=== PATIENT | male | born 2000 | race Caucasian/White ===

== ENCOUNTER 2023-04-26 09:56 | Emergency (ER) | payer MEDICAID, SELFPAY ==
[2023-04-26 09:59] VITALS: BP 137/87; PULSE 72; RESP 14; TEMP 36.8; O2SAT 98
[2023-04-26] MEDS: Acetaminophen 500 MG TAB PO (10:26)
[2023-04-26] MEDS: Amoxicillin 875/Clav. 125 TAB PO (10:26)
[2023-04-26] MEDS: Ibuprofen 600 MG TAB PO (10:26)
--- NOTE | 2023-04-26 10:39 | W.ED.GENAD ---
Discharge Plan Disposition Patient Disposition: Home Condition: Stable Discharge Details Clinical Impression: Infected dental caries Primary Care Provider: None,None ED Provider: Ken Collado Home Meds and New Rx's Prescriptions: New amoxicillin-pot clavulanate 875-125 mg tablet 1 tab PO Q12H 7 Days Qty: 14 0RF Discharge Instructions Instructions: Dental Abscess (ED) Additional Instructions: At this time it appears that your dental decay has led to a infection of your teeth. You have been placed on antibiotics and you will need to take the full course of antibiotics as prescribed and do not save or stop the antibiotic until completed. Please follow-up with a dental provider for definitive care of your dental complaint as the level of decay is contributing to the infection. If you develop any new or significant worsening symptoms feel free to return the emergency department for reassessment. Referrals: [facility] [Provider Group] (Please call the office for arrangement of definitive care) Discharge Data Discharge Date/Time-TO BE ENTERED AT DEPARTURE: 04/26/23 10:54 Medical Decision Making exam consistent with dental infection without drainable abscess. no signs of deep neck space infection ( Retropharyngeal abscess, Ad's angina, Parapharyngeal space infection, Peritonsillar Abscess (CONTRACT CONSULTANT)) or Epiglottitis, No signs of trigeminal neuralgia. Pt non toxic and stable. they should encourage to continue over the counter pain therapy and follow up with dental provider as soon as possible for definitive care of Dental complaint. Due to very poor dentition will place patient on antibiotic. After discussion of diagnosis and plan of care patient has no further needs, questions, or concerns and states clear understanding to return to the emergency department for any worsening symptoms. This documentation was generated using X-1ation system, please disregard any oddities of phrase or misspellings. HPI General Mode of arrival: ambulatory. Date/Time Provider Initiated Documentation: 04/26/23 10:03. Limitations to Documentation: no limitations. Information obtained by: patient. History of Present Illness 22 year old M presents to the emergency department with the chief complaint of dental, described as moderate, with intensity rated at 10. Quality is described as aching, and is localized to the face. Patient started experiencing this day(s) (1) and it has been constant. No relieving factors improve symptom(s), No exacerbating factors reported . Patient notes no other symptoms.. Patient did receive the following treatments prior to arrival, NSAID Related Data Home Medications Medication Instructions Recorded Confirmed amoxicillin 875 mg-potassium 1 tab PO Q12H 7 days #14 tabs 04/26/23 clavulanate 125 mg tablet Previous Rx's Medication Instructions Recorded amoxicillin 875 mg-potassium 1 tab PO Q12H 7 days #14 tabs 04/26/23 clavulanate 125 mg tablet Allergies Allergy/AdvReac Type Severity Reaction Status Date / Time No Known Allergies Allergy Unverified 04/26/23 10:05 General Stated Complaint: DentalOral DAVID: 4 Review of Systems Constitutional Constitutional: Denies chills and Denies fever(s) ENT Ears, Nose, Mouth, and Throat: Reports as per HPI, Denies change in voice, Reports dental pain, Denies dysphagia, Denies throat swelling and Denies tongue swelling Cardiovascular Cardiovascular: Denies chest pain and Denies dyspnea Respiratory Respiratory: Denies dyspnea, Denies stridor and Denies wheezing Gastrointestinal Gastrointestinal: Denies abdominal pain, Denies dysphagia, Denies nausea and Denies vomiting Integumentary/Breasts Skin/Breast: Denies rash Allergic/Immunologic Allergic/Immunologic: Denies throat swelling, Denies tongue swelling and Denies wheezing PFSH All Active Problems Infected dental caries (Acute) Social History Smoking/Tobacco Use Status: Current every day Tobacco Type: cigarettes Tobacco: How many years used: 4 Smoking risk assessment performed?: Yes Alcohol Intake: current Alcohol Intake frequency: holidays/special occasions only Alcohol type: beer and hard liquor Substance use type: does not use Do you feel safe at home: Yes Do you feel safe in your relationship?: Yes Exam Const General: cooperative Orientation: alert, awake and oriented x3 Limitations: mental status not altered [facility] Head: normal to inspection, normocephalic and atraumatic Ears: hearing grossly normal bilaterally, normal mastoids bilaterally and no periauricular adenopathy General nose exam: external nose normal Mouth: oropharynx normal, no drooling, no muffled voice, normal tongue and no trismus Teeth and gingiva: abnormal tooth or associated gingiva (8&9) upper central incisor tender, with associated gingival edema, enamel fractured and dentin fractured, caries, gingiva abnormal hypertrophic and edematous and poor dentition Throat: posterior oropharynx normal, tonsils normal and uvula midline Eyes General: appearance normal, both eyes and all related structures Pupils: PERRL Neck Neck: normal visual inspection, full ROM, no lymphadenopathy, no meningeal signs, trachea midline, supple, no anterior neck swelling and no midline deformity Resp Effort & Inspection: normal respiratory effort and able to speak in complete sentences Course Vital Signs Vital signs: Vital Signs Temperature 36.8 C 04/26/23 09:59 Pulse 72 04/26/23 09:59 Respiratory Rate 14 04/26/23 09:59 Blood Pressure 137/87 04/26/23 09:59 Pulse Oximetry 98 04/26/23 09:59 Temperature 36.8 C 04/26/23 09:59 Temperature Source Skin 04/26/23 09:59 Pulse 72 04/26/23 09:59 Respiratory Rate 14 04/26/23 09:59 Respiratory Effort Normal 04/26/23 10:19 Blood Pressure 137/87 04/26/23 09:59 Blood Pressure Position Sitting 04/26/23 09:59 Pulse Oximetry 98 04/26/23 09:59 Oxygen Delivery Method Room Air 04/26/23 09:59 Oxygen Flow Rate 0 04/26/23 09:59 Pain Level 10 04/26/23 09:59
== END 2023-04-26 10:54 | disposition home or self-care (01) ==
PROVIDERS: Emergency Provider Nurse Practitioner Family
DX: K08.89 Other specified disorders of teeth and supporting structures (principal)
CPT/HCPCS: 99283; 99284

== ENCOUNTER 2023-07-09 08:36 | Emergency (ER) | payer MEDICAID, SELFPAY ==
[2023-07-09 08:42] VITALS: BP 133/74; PULSE 64; RESP 16; TEMP 37.6; O2SAT 98
--- NOTE | 2023-07-09 09:10 | ED.GENADUL_ITS ---
Discharge Plan Disposition Patient Disposition: Home Condition: Stable Discharge Details Clinical Impression: Chronic dental infection Primary Care Provider: Aminata,Local ED Provider: Josefina Ponce Home Meds and New Rx's Prescriptions: New clindamycin HCl 150 mg capsule 450 mg PO TID 7 Days Qty: 63 0RF Discharge Instructions Instructions: Toothache (ED), Gingivostomatitis (ED) Additional Instructions: Please wash out your mouth after eating or drinking anything, brush teeth twice a day. Consider quitting smoking. You do need to follow-up with a dentist. Take the antibiotic with yogurt or probiotic as directed. Please take Tylenol or Ibuprofen with food every 4-6 hours as needed for pain and swelling. Follow up with dentist/primary care provider in 3-5 days. Return to ED sooner if any worsening swelling, trouble opening your mouth, worsening fever, vomiting or feeling sicker or concerns. Increase oral fluids. Stand Alone Forms: Work Release Discharge Data Discharge Date/Time-TO BE ENTERED AT DEPARTURE: 07/09/23 09:29 Medical Decision Making 22-year-old male presents to the ER with a chief complaint of frontal dental pain and lip swelling which started last night. He does have a history of poor dentition, dental caries and eroded teeth which she was seen for here appro ximately month ago. He has not yet gotten into the dentist. He is slightly febrile upon arrival with a temp of 37.6 he reports he did take a gram of Tylenol prior to arrival. He does have gingival swelling to the front upper approximately 5 teeth. No area of fluctuance noted no drainage. No trismus posterior oropharynx within normal limits uvula midline. He denies any anterior cervical lymphadenopathy cough chest pain or any other associated symptoms. He is a smoker. He denies any illicit drugs or alcohol. He has been taking Tylenol with little to no relief. No evidence of abscess, no evidence of Ad's angina, ordered ibuprofen, clindamycin, HurriCaine gel. We will give dental resources. I did discuss home care and dental care verbalizes understanding. This text was generated using Surveying [employer] Mapping (SAM)ation system, please disregard any oddities of phrase or misspellings. HPI General Mode of arrival: ambulatory . Date/Time Provider Initiated Documentation: 07/09/23 08:57 . Limitations to Documentation: no limitations . Information obtained by: patient, RN notes reviewed and old records reviewed . HPI Narrative: 22-year-old male presents to the ER with a chief complaint of frontal dental pain and lip swelling which started last night. He does have a history of poor dentition, dental caries and eroded teeth which she was seen for here approximately month ago. He has not yet gotten into the dentist. He is slightly febrile upon arrival with a temp of 37.6 he reports he did take a gram of Tylenol prior to arrival. He does have gingival swelling to the front upper approximately 5 teeth. No area of fluctuance noted no drainage. No trismus p osterior oropharynx within normal limits uvula midline. He denies any anterior cervical lymphadenopathy cough chest pain or any other associated symptoms. He is a smoker. He denies any illicit drugs or alcohol. Related Data Home Medications Medication Instructions Recorded Confirmed clindamycin HCl 150 mg capsule 450 mg PO TID 7 days #63 caps 07/09/23 Previous Rx's Medication Instructions Recorded clindamycin HCl 150 mg capsule 450 mg PO TID 7 days #63 caps 07/09/23 Allergies Allergy/AdvReac Type Severity Reaction Status Date / Time No Known Allergies Allergy Unverified 07/09/23 08:45 General Stated Complaint: DentalOral DAVID: 4 Review of Systems All systems reviewed & are unremarkable except as noted in HPI and below Constitutional Constitutional: Denies fever(s) and Denies headache(s) ENT Ears, Nose, Mouth, and Throat: Reports as per HPI, Denies change in voice, Reports dental pain, Denies dysphagia, Denies vertigo, Denies dizziness, Denies otalgia, Denies headache(s), Denies hoarseness, Reports lip swelling (Frontal lip, reports was worse REGISTERED DIETITIAN), Reports mouth pain, Denies nasal discharge, Denies neck pain, Denies sinus pain and Denies tongue swelling Cardiovascular Cardiovascular: Denies chest pain and Denies dyspnea Respiratory Respiratory: Denies dyspnea Gastrointestinal Gastrointestinal: Denies dysphagia Musculoskeletal Musculoskeletal: Denies neck pain Neurologic Neurologic: Denies vertigo, Denies dizziness and Denies headache(s) Allergic/Immunologic Allergic/Immunologic: Reports lip swelling (Frontal lip, reports was worse REGISTERED DIETITIAN) and Denies tongue swelling PFSH All Active Problems (Updated 07/09/23 @ 09:16 by Josefina Ponce NP) Chronic dental infection (Acute) Social History Smoking/Tobacco Use Status: Current every day Tobacco Type: cigarettes Tobacco: How many years used: 4 Smoking risk assessment performed?: Yes Alcohol Intake: current Alcohol Intake frequency: holidays/special occasions only Alcohol type: beer and hard liquor Drug use: Never Substance use type: does not use Housing: apartment Do you feel safe at home: Yes Do you feel safe in your relationship?: Yes Exam HENMT Teeth and gingiva: abnormal tooth or associated gingiva (See diagram) upper central incisor tender and with associated gingival edema; well fixed and without associated gingival fluctuance, caries and poor dentition Teeth image: 1. Multiple eroded teeth with surrounding gingival erythema and swelling, does have a white lesion noted to the right upper gum. Mild swelling of the upper lip. No area of fluctuance or abscess no drainage noted. Throat: posterior oropharynx normal Neck Neck: normal visual inspection, full ROM and no lymphadenopathy Resp Effort & Inspection: normal respiratory effort Auscultation: clear to auscultation bilaterally Cardio Rate: regular rate Rhythm: regular rhythm Heart Sounds: S1 normal and S2 normal Course Vital Signs Vital signs: Vital Signs Temperature 37.6 C H 07/09/23 08:42 Pulse 64 07/09/23 08:42 Respiratory Rate 16 07/09/23 08:42 Blood Pressure 133/74 07/09/23 08:42 Pulse Oximetry 98 07/09/23 08:42 Temperature 37.6 C H 07/09/23 08:42 Temperature Source Oral 07/09/23 08:42 Pulse 64 07/09/23 08:42 Respiratory Rate 16 07/09/23 08:42 Respiratory Effort Normal, Non-Labored 07/09/23 08:45 Blood Pressure 133/74 07/09/23 08:42 Blood Pressure Position Sitting 07/09/23 08:42 Pulse Oximetry 98 07/09/23 08:42 Oxygen Delivery Method Room Air 07/09/23 08:42 Oxygen Flow Rate 0 07/09/23 08:42
[2023-07-09] MEDS: Ibuprofen 400 MG TAB PO (09:20)
[2023-07-09] MEDS: Clindamycin 150 MG CAP 450 MG PO (09:21)
[2023-07-09] MEDS: Benzocaine 20% Gel 30 GM JAR MM (09:22)
[2023-07-09] MEDS: Clindamycin 150 MG CAP, 12 CAPS/BTL 450 MG PO (09:28)
== END 2023-07-09 09:29 | disposition home or self-care (01) ==
PROVIDERS: Emergency Provider Registered Nurse Emergency
DX: K04.7 Periapical abscess without sinus (principal)
CPT/HCPCS: 99283; 99284

== ENCOUNTER 2023-09-19 17:00 | Emergency (ER) | payer MEDICAID, SELFPAY ==
[2023-09-19 17:04] VITALS: BP 147/80; PULSE 86; RESP 16; TEMP 37.3; O2SAT 98
--- OUTSIDE RECORDS SUMMARY | 2023-09-19 17:06 | XMS_ITS | CCD ---
Author Name Unknown Address [address] [place] [address] [id number] Organization Unknown Address [address] [place] [address] [id number] Care Team Providers Care Manager Of Security Name Role Phone MANDI GUERRERO Attending Physician [id number] MILAGRO ZHENG Er Physician 6 [phone] DIVINE Sandoval Registered Nurse [phone] Vital Signs Vital Sign Value Unit Date/Time Recent/Initial ? BMI (Body Mass Index) 25.09 kg/m^2 09/13/2023 13: 21 Initial VS Weight Measured 165 lbs 09/13/2023 13:21 Ini tial VS Height 68 in 09/13/2023 13:21 Initial VS BSA (Body Surface Area) 1.89 m^2 09/13/2023 1 3:21 Initial VS BP Systolic 150 mmHg 09/13/2023 13:21 Initial VS BP Diastolic 83 mmHg 09/13/2023 13:21 Initia l VS Respiratory Rate 18 bpm 09/13/2023 13:21 In itial VS Heart Rate 78 bpm 09/13/2023 13:21 Initial VS O2 % BldC Oximetry 100 % 09/13/2023 13:21 Initial VS Body Temperature 36.7 degrees 09/13/2023 13:21 In itial VS Allergies Allergy Code Allergy Type Reaction Status No Known Allergies {Clinical monitoring unavailable} 0 Drug allergy Active Procedures Unknown or Not Available. History of Immunizations Unknown or Not Available. Problems Unknown or Not Available. Results Unknown or Not Available. Active Medications Unknown or Not Available. Medications Administered During Visit Unknown or Not Available. Encounters Encounter Diagnosis Diagnosis Code Start Date Periapical abscess [id number] 09/13/2023 Social History Smoking Status Code Start Date End Date Never smoker [id number] Patient Decision Aids Unknown or Not Available. Discharge Instructions You were admitted to [facility] on 09/13/2023 13:04 with a principal diagnosis of Periapical abscess without sinus You were discharged from [facility] on 09/13/2023 14:17 Should you have any questions prior to discharge, please contact a member of your healthcare team. If you have left the hospital and have any questions, please contact your primary care physician. Chief Complaint and Reason For Visit Chief Complaint Date of Onset MOUTH PAIN AND SWELLING Function Status Unknown or Not Available. Plan of Care Unknown or Not Available. Referral/Transition of Care Unknown or Not Available.
--- NOTE | 2023-09-19 17:30 | ED.GENADUL_ITS ---
Discharge Plan Disposition Patient Disposition: Home Condition: Stable Discharge Details Clinical Impression: Dental infection Primary Care Provider: None,None ED Provider: Lisha Turner Home Meds and New Rx's Prescriptions: New clindamycin HCl [Cleocin HCl] 300 mg capsule 300 mg PO QID Qty: 28 0RF Discharge Instructions Instructions: Dental Abscess (ED) Additional Instructions: Continue ibuprofen and acetaminophen alternating the 2 every 2-3 hours daily as directed (ibuprofen 600 mg 4 times daily with food, acetaminophen 650 mg 4 times daily with food) Continue salt water gargles as instructed Referrals: None,None [Primary Care Provider] - (establish with dentist archie) Medical Decision Making Patient presents after some improvement with treatment with penicillin for dental infection but ongoing pain and almost on prescription without complete resolution. I think at this point it would be prudent to increase antibiotic to clindamycin he should continue using ibuprofen and acetaminophen with salt water gargles, he should continue to seek dental provider for definitive treatment. HPI General Mode of arrival: ambulatory . Date/Time Provider Initiated Documentation: 09/19/23 17:09 . Limitations to Documentation: no limitations . Information obtained by: patient . HPI Narrative: This is a 22-year-old male patient no significant past medical history but does have poor oral hygiene/dentition with extensive caries and dental decay who was seen at [facility] for dental infection and placed on penicillin. He states he has been unable to get into a dentist he is alternating Tylenol and ibuprofen without significant improvement in his symptoms but he does state that he has had decreased swelling but still having ongoing pain. He has had no fever or chills. There is no drainable obvious abscess. He has no facial swelling or cellulitis noted. Vital signs are stable nontoxic-appearing Related Data Home Medications Medication Instructions Recorded Confirmed clindamycin HCl 300 mg capsule 300 mg PO QID #28 caps 09/19/23 (Cleocin HCl) Previous Rx's Medication Instructions Recorded clindamycin HCl 300 mg capsule 300 mg PO QID #28 caps 09/19/23 (Cleocin HCl) Allergies Allergy/AdvReac Type Severity Reaction Status Date / Time No Known Allergies Allergy Unverified 07/09/23 08:45 General Stated Complaint: DentalOral DAVID: 3 Review of Systems All systems reviewed & are unremarkable except as noted in HPI and below PFSH All Active Problems (Updated 09/19/23 @ 17:35 by Lisha Turner NP) Dental infection (Acute) Social History Smoking/Tobacco Use Status: Current every day Tobacco Type: cigarettes Tobacco: How many years used: 4 Smoking risk assessment performed?: Yes Alcohol Intake: current Alcohol Intake frequency: holidays/special occasions only Alcohol type: beer and hard liquor Drug use: Never Substance use type: does not use Housing: apartment Do you feel safe at home: Yes Do you feel safe in your relationship?: Yes Exam Const General: cooperative, comfortable and no acute distress Nutritional Appearance: average body habitus Orientation: alert, awake and oriented x3 HENMT Mouth: oral mucosae normal Teeth and gingiva: abnormal tooth or associated gingiva upper right Teeth image: 2 1. one missing, one left with severed dental decay, gum irriated and inflamed Throat: posterior oropharynx normal and uvula midline Neck Neck: normal visual inspection, full ROM and no lymphadenopathy noted Chest Chest: normal inspection of the chest Resp Effort & Inspection: normal respiratory effort Cardio Rate: regular rate Skin General skin exam: no rashes or lesions noted Neuro General: patient alert, patient awake, patient oriented x3 and no focal motor deficits Course Vital Signs Vital signs: Vital Signs Temperature 37.3 C 09/19/23 17:04 Pulse 86 09/19/23 17:04 Respiratory Rate 16 09/19/23 17:04 Blood Pressure 147/80 H 09/19/23 17:04 Pulse Oximetry 98 09/19/23 17:04 Temperature 37.3 C 09/19/23 17:04 Pulse 86 09/19/23 17:04 Respiratory Rate 16 09/19/23 17:04 Respiratory Effort Normal, Non-Labored 09/19/23 17:08 Blood Pressure 147/80 H 09/19/23 17:04 Pulse Oximetry 98 09/19/23 17:04 Pain Level 7 09/19/23 17:04 PAWSS Have you Been Recently Intoxicated or Drunk Within the Last 30 days?: No Have you Ever Experienced Previous Episodes of Alcohol Withdrawal?: No Have you ever Experienced Withdrawal Seizures?: No Have you ever Experienced Delirium Tremens(DT)s?: No Have you ever undergone Alcohol Rehabilitation Treatment (i.e, inpt ot outpatient treatment programs)?: No Have you ever Experienced Blackouts?: No Have you ever Combined Alcohol with other Downers within the last 90 days?: No Have you ever Combined Alcohol with any other Substance of Abuse during the last 90 days?: No Result: 0
== END 2023-09-19 17:46 | disposition home or self-care (01) ==
PROVIDERS: Emergency Provider Nurse Practitioner Acute Care
DX: K08.89 Other specified disorders of teeth and supporting structures (principal); F17.210 Nicotine dependence, cigarettes, uncomplicated
CPT/HCPCS: 99282

== ENCOUNTER 2024-12-29 09:37 | Emergency (ER) | payer MEDICAID, SELFPAY ==
[2024-12-29 09:48] VITALS: BP 162/88; PULSE 97; RESP 16; TEMP 36.6; O2SAT 98
[2024-12-29 09:55] VITALS: BP 162/88; PULSE 97; RESP 16; TEMP 36.6; O2SAT 98
[2024-12-29 10:29] VITALS: BP 160/80; PULSE 90; RESP 16; TEMP 36.6; O2SAT 98
[2024-12-29] MEDS: MORPHine IR 15 MG TAB, 4 TABS/BTL PO (10:29)
--- NOTE | 2024-12-29 12:02 | ED.GENADUL_ITS ---
Discharge Plan Disposition Patient Disposition: Home Condition: Stable Discharge Details Clinical Impression: Dental abscess Primary Care Provider: None,None ED Provider: Ester Simons Home Meds and New Rx's Prescriptions: New clindamycin HCl 150 mg capsule 450 mg PO Q6H 10 Days Qty: 120 0RF Discharge Instructions Instructions: Dental Pain (DC) Additional Instructions: motrin and tylenol per pkg instruction for pain larissa given you several tabs of morphine, you make take 1/2-1 full tab every 8 hours as needed for discomfort, do not operate your vehicle for 8 hours after taking this medication Please return with increased swelling, fever, difficulty swallowing Please call one of the providers on the list to establish with a dentist Complete your course of antibiotics this is very important Soft foods at room temperature encouraged Stand Alone Forms: Work Release Discharge Data Discharge Date/Time-TO BE ENTERED AT DEPARTURE: 12/29/24 10:30 HPI General Date/Time Provider Initiated Documentation: 12/29/24 09:38 . HPI Narrative: The patient is an otherwise healthy, 24-year-old male who presents with a report of right lower dental pain, which started on Saturday. He has had issues with his wisdom teeth in the past but has yet to follow up with a dentist. He reports pain with chewing. This morning, he noticed swelling on the right side of his face. He does not have fever, chills, difficulty swallowing, or shortness of breath. He does not report any known injury. Related Data Home Medications ?Medication ?Instructions ?Recorded ?Confirmed clindamycin HCl 150 mg capsule 450 mg (3 x 150 mg) PO Q6H 10 days 12/29/24 #120 caps Previous Rx's ?Medication ?Instructions ?Recorded clindamycin HCl 150 mg capsule 450 mg (3 x 150 mg) PO Q6H 10 days 12/29/24 #120 caps Allergies Allergy/AdvReac Type Severity Reaction Status Date / Time No Known Allergies Allergy Unverified 12/29/24 10:13 General Stated Complaint: DentalOral DAVID: 4 Exam Narrative Exam Narrative: General Appearance: The patient is alert and oriented, shows no signs of acute distress. Vital signs: Within normal limits. HEENT: Right facial swelling is noted. Tooth number 32 appears to be the source of the issue. There is no obvious fluctuance or drainage, no alveolar abscess, no trismus, no soft palate induration, and no clinical findings consistent with Ad's angina. Respiratory: No stridor is present. Skin: Warm and dry, no rash. Neurological: Normal. Course Vital Signs Vital signs: Vital Signs Temperature 36.6 C 12/29/24 09:48 Pulse 97 H 12/29/24 09:48 Respiratory Rate 16 12/29/24 09:48 Blood Pressure 162/88 H 12/29/24 09:48 Pulse Oximetry 98 12/29/24 09:48 Temperature 36.6 C 12/29/24 10:29 Temperature Source Oral 12/29/24 09:55 Pulse 90 12/29/24 10:29 Respiratory Rate 16 12/29/24 10:29 Blood Pressure 160/80 H 12/29/24 10:29 Blood Pressure Position Sitting 12/29/24 09:55 Pulse Oximetry 98 12/29/24 10:29 Oxygen Delivery Method Room Air 12/29/24 09:55 Oxygen Flow Rate 0 12/29/24 09:48 Pain Level 8 12/29/24 09:53 Medical Decision Making Initial Assessment: 24-year-old male with right lower dental pain and right facial swelling, no fever, chills, difficulty swallowing, or shortness of breath. ED Course: - Examination reveals right facial swelling, no fluctuance, drainage, or signs of Ad's angina. - Advised to use Motrin and Tylenol for pain management. - Encouraged to gargle with warm salt water. - Patient has been using Hurricane gel at home. - Return precautions reviewed and patient expressed understanding. - Dental block offered but declined. - Referral to a dentist will be made. - Started on clindamycin 300 mg every 0600 hours for the next 10 days. - Four tablets of opiate analgesia provided, risk of addiction reviewed. Final Assessment: Patient with right lower dental pain and facial swelling, managed with pain relief measures, antibiotics, and referral to a dentist. Clinical Impression: - Dental pain Disposition: - Follow-Up: Referral to a dentist. Patient Education: Return precautions reviewed and patient expressed understanding. Quality:SDOH Health Related Social Needs: No Data to Display PFSH All Active Problems (Updated 12/29/24 @ 10:13 by GABI Lynch) Dental abscess (Acute) Social History Smoking/Tobacco Use Status: Current every day Tobacco Type: cigarettes Tobacco: How many years used: 4 Smoking risk assessment performed?: Yes Alcohol Intake: current Alcohol Intake frequency: holidays/special occasions o nly Alcohol type: beer and hard liquor Drug use: Never Substance use type: does not use Housing: apartment Do you feel safe at home: Yes Do you feel safe in your relationship?: Yes PAWSS Have you Been Recently Intoxicated or Drunk Within the Last 30 days?: No Have you Ever Experienced Previous Episodes of Alcohol Withdrawal?: No Have you ever Experienced Withdrawal Seizures?: No Have you ever Experienced Delirium Tremens(DT)s?: No Have you ever undergone Alcohol Rehabilitation Treatment (i.e, inpt ot outpatient treatment programs)?: No Have you ever Experienced Blackouts?: No Have you ever Combined Alcohol with other Downers within the last 90 days?: No Have you ever Combined Alcohol with any other Substance of Abuse during the last 90 days?: No Positive Blood Alcohol level on Presentation? [PCS.BAL]: No Evidence of Increased Autonomic Activity (i.e. HR>120, tremor, sweating, agitation, nausea)?: No Result: 0
== END 2024-12-29 10:30 | disposition home or self-care (01) ==
LOC: ER 10:37
PROVIDERS: Emergency Provider Physician Assistant
DX: K04.7 Periapical abscess without sinus (principal); F17.210 Nicotine dependence, cigarettes, uncomplicated
CPT/HCPCS: 99283